=== PATIENT | male | born 1970 | race Caucasian/White ===

== ENCOUNTER → 2018-05-20 12:35 | Outpatient (REF) | payer BC, SELFPAY | LOC: NCHCN 12:35 | PROVIDERS: PCP Physician Assistant Medical; Visit Provider Family Medicine | DX: H57.8 Other specified disorders of eye and adnexa (principal); Z20.9 Contact with and (suspected) exposure to unspecified communicable disease | CPT/HCPCS: 87070 ==

== ENCOUNTER → 2018-06-01 10:40 | Outpatient (REF) | payer BC, SELFPAY ==
[2018-06-01 21:51] LABS: ALT 88 U/L (12-78); AST 36 U/L (15-37); Alkaline Phosphatase 112 U/L (46-116); Anion Gap 7.3 mmol/L (3-11); BUN 15 mg/dL (7-18); Bilirubin, Total 0.4 mg/dL (0.2-1.0); CO2 27.7 mmol/L (21.0-32.0); CREATININE 1.03 mg/dL (0.70-1.30); Calcium 8.7 mg/dL (8.5-10.1); Chloride 104 mmol/L (98-107); Cholesterol 248 mg/dL (50-200); Glucose 117 mg/dL (70-100); HDL Cholesterol 42 mg/dL (40-60); LDL CHOLESTEROL 78 mg/dL (<100); Potassium 4.3 mmol/L (3.5-5.1); Sodium 139 mmol/L (136-145); Triglyceride 704 mg/dL (30-150)
== END ==
LOC: NCHCN 10:40
PROVIDERS: PCP Physician Assistant Medical; Visit Provider Physician Assistant Medical
DX: Z00.00 Encounter for general adult medical examination without abnormal findings (principal); E78.5 Hyperlipidemia, unspecified; I10 Essential (primary) hypertension
CPT/HCPCS: 80053; 80061; 83721; 83036

== ENCOUNTER 2018-11-19 10:07 | Outpatient (REF) | payer BC, SELFPAY ==
[2018-11-19 19:39] LABS: ALT 114 U/L (12-78); AST 51 U/L (15-37); Albumin 4.3 g/dL (3.4-5.0); Alkaline Phosphatase 64 U/L (46-116); Anion Gap 10.3 mmol/L (3-11); BUN 21 mg/dL (7-18); Bilirubin, Total 0.5 mg/dL (0.2-1.0); CO2 27.7 mmol/L (21.0-32.0); CREATININE 1.02 mg/dL (0.70-1.30); Calcium 9.6 mg/dL (8.5-10.1); Chloride 100 mmol/L (98-107); Cholesterol 300 mg/dL (50-200); Glucose 116 mg/dL (70-100); HDL Cholesterol 49 mg/dL (40-60); LDL CHOLESTEROL 152 mg/dL (<100); Potassium 4.4 mmol/L (3.5-5.1); Sodium 138 mmol/L (136-145); Total Protein 7.3 g/dL (6.4-8.2); Triglyceride 523 mg/dL (30-150)
[2018-11-19 19:47] LABS: Hemoglobin A1C 6.1 % (4.5-6.2)
== END 2018-11-19 10:27 ==
LOC: NCHCN 10:07
PROVIDERS: PCP Physician Assistant Medical; Visit Provider Physician Assistant Medical
DX: R73.01 Impaired fasting glucose (principal); E78.5 Hyperlipidemia, unspecified
CPT/HCPCS: 80053; 80061; 83721; 83036

== ENCOUNTER 2019-02-22 09:25 | Outpatient (REF) | payer BC, SELFPAY ==
[2019-02-22 20:52] LABS: ALT 50 U/L (12-78); AST 21 U/L (15-37); Alkaline Phosphatase 60 U/L (46-116); Anion Gap 10.9 mmol/L (3-11); BUN 22 mg/dL (7-18); Bilirubin, Total 0.5 mg/dL (0.2-1.0); CO2 28.1 mmol/L (21.0-32.0); CREATININE 0.98 mg/dL (0.70-1.30); Calcium 9.2 mg/dL (8.5-10.1); Chloride 102 mmol/L (98-107); Cholesterol 254 mg/dL (50-200); Glucose 117 mg/dL (70-100); HDL Cholesterol 45 mg/dL (40-60); LDL CHOLESTEROL 127 mg/dL (<100); Sodium 141 mmol/L (136-145); Total Protein 6.7 g/dL (6.4-8.2); Triglyceride 433 mg/dL (30-150)
[2019-02-22 23:22] LABS: Hemoglobin A1C 6.3 % (4.5-6.2)
== END 2019-02-22 09:45 ==
LOC: NCHCN 09:25
PROVIDERS: PCP Physician Assistant Medical; Visit Provider Physician Assistant Medical
DX: E78.5 Hyperlipidemia, unspecified (principal)
CPT/HCPCS: 80053; 80061; 83721; 83036

== ENCOUNTER 2020-10-03 16:09 | Outpatient (REF) | payer BC, SELFPAY ==
[2020-10-03 20:53] LABS: ALT 63 U/L (16-63); AST 31 U/L (15-37); Albumin 4.3 g/dL (3.4-5.0); Alkaline Phosphatase 68 U/L (46-116); Anion Gap 12.6 mmol/L (3-11); BUN 18 mg/dL (7-18); Bilirubin, Total 0.6 mg/dL (0.2-1.0); CO2 25.4 mmol/L (21.0-32.0); CREATININE 1.04 mg/dL (0.70-1.30); Calcium 9.2 mg/dL (8.5-10.1); Chloride 99 mmol/L (98-107); Cholesterol 301 mg/dL (<200); Glucose 110 mg/dL (74-106); HDL Cholesterol 47 mg/dL (40-60); Potassium 3.6 mmol/L (3.5-5.1); Sodium 137 mmol/L (136-145); TSH (W/Ref FT4) 2.55 uIU/mL (0.36-3.74); Triglyceride 847 mg/dL (<150)
[2020-10-03 20:54] LABS: Hemoglobin A1C 6.3 % (<5.7)
[2020-10-03 21:05] LABS: LDL CHOLESTEROL 113 mg/dL (<100)
== END 2020-10-03 16:29 ==
LOC: NCHCN 16:09
PROVIDERS: PCP Physician Assistant Medical; Visit Provider Physician Assistant Medical
DX: Z00.00 Encounter for general adult medical examination without abnormal findings (principal); Z13.220 Encounter for screening for lipoid disorders; Z13.1 Encounter for screening for diabetes mellitus; Z13.29 Encounter for screening for other suspected endocrine disorder
CPT/HCPCS: 80053; 80061; 83721; 83036; 84443

== ENCOUNTER 2020-12-17 01:02 | Outpatient (CLI) | payer BC, SELFPAY ==
--- NOTE | 2020-12-17 11:35 | DI.MRI_ITS ---
EXAM: MR LUMBAR SPINE WO CLINICAL HISTORY: ACUTE LOW BACK PAIN, M54.5. TECHNIQUE: Multiplanar multisequence MRI of the Lumbar spine was performed. COMPARISON: There are no plain films available at the time of this MRI interpretation. FINDINGS: Five lumbar vertebrae are presumed. Conus medullaris is at normal level. There is no evidence of conus mass nor subjacent clumping of in trathecal nerve roots to suggest arachnoiditis. The distal thecal sac appears unremarkable.There is no evidence of Tarlov intrasacral cysts nor other significant findings within the sacral canal Bones:There are no acute fractures nor ominous osseous lesions in the lumbar vertebral bodies and vis ualized sacrum. Slight loss of height of L1 vertebral body is noted at superior endplate. This is n ot associated with bone edema. With respect to the individual levels... T12-L1: Unremarkable L1-2: Normal disc height and signal. No disc herniation nor central canal stenosis.No foraminal steno sis L2-3: Normal disc height. No disc herniation nor central canal stenosis.No foraminal stenosis.No face t arthropathy. L3-4: Normal disc height. No disc herniation or central canal stenosis.No foraminal stenosis.No face t arthropathy. L4-5: Normal disc height and signal. There is a tiny focus of increased signal seen in the posterior inferior aspect of the annulus, this at the level of the exiting left neural foramen. However, ther e is no significant disc herniation at this level. No central nor foraminal stenosis. No facet arth ropathy. L5-S1: Normal disc height and signal. Also tiny focus of signal abnormality in the posterior annulus but without a distinct disc herniation. No central canal stenosis. No foraminal stenosis. No face t arthropathy. Soft tissues: paraspinal soft tissues appear unremarkable. IMPRESSION: 1. Minimal findings as described above. No evidence of significant disc herniation, central canal st enosis, neural foraminal stenosis, nor facet arthropathy. 2. Slight loss of height at superior endplate of L1 noted which does not appear acute (no associated bone edema). 3. No significant osseous lesions identified in the lumbar vertebrae. DATA REPOSITORY:
== END 2020-12-17 01:22 ==
PROVIDERS: PCP Physician Assistant Medical; Visit Provider Physician Assistant Medical
DX: M54.5 Low back pain (principal)
CPT/HCPCS: 72148

== ENCOUNTER 2020-12-18 20:12 | Outpatient (REF) | payer BC, SELFPAY ==
[2020-12-20 14:24] LABS: COVID-19 RT-PCR UVMMC Result Positive (Negative)
== END 2020-12-18 20:13 | disposition home or self-care (01) ==
LOC: NCHCN 20:12
PROVIDERS: PCP Physician Assistant Medical; Visit Provider Physician Assistant Medical
DX: Z20.822 Contact with and (suspected) exposure to COVID-19 (principal); J06.9 Acute upper respiratory infection, unspecified
CPT/HCPCS: U0003

== ENCOUNTER 2020-12-21 05:24 | Outpatient (CLI) | payer BC, SELFPAY ==
[2020-12-21 12:35] VITALS: BP 131/88; PULSE 82; RESP 20; TEMP 36.6; O2SAT 97
[2020-12-21] MEDS: Normal Saline Flush 10 ML SYR IVP (12:44)
[2020-12-21 13:10] VITALS: BP 134/92; PULSE 78; RESP 16; TEMP 37; O2SAT 95
[2020-12-21] MEDS: Normal Saline 500 ML 30 ML IV (13:42)
[2020-12-21 13:51] VITALS: BP 128/88; PULSE 76; RESP 18; TEMP 36.9; O2SAT 96
[2020-12-21 14:15] VITALS: BP 139/92; PULSE 74; RESP 18; TEMP 36.9; O2SAT 97
== END 2020-12-21 05:25 | disposition home or self-care (01) ==
LOC: INF 05:24
PROVIDERS: PCP Physician Assistant Medical; Visit Provider Family Medicine
DX: U07.1 COVID-19 (principal)
CPT/HCPCS: 96365

== ENCOUNTER 2021-01-14 11:41 | Outpatient (REF) | payer BC, SELFPAY ==
[2021-01-14 16:42] LABS: ALT 75 U/L (16-63); AST 29 U/L (15-37); Albumin 4.3 g/dL (3.4-5.0); Alkaline Phosphatase 77 U/L (46-116); Anion Gap 13.6 mmol/L (3-11); BUN 21 mg/dL (7-18); Bilirubin, Total 0.4 mg/dL (0.2-1.0); CO2 27.4 mmol/L (21.0-32.0); Calcium 9.5 mg/dL (8.5-10.1); Chloride 102 mmol/L (98-107); Cholesterol 255 mg/dL (<200); Glucose 128 mg/dL (74-106); HDL Cholesterol 46 mg/dL (40-60); Potassium 4.3 mmol/L (3.5-5.1); Sodium 143 mmol/L (136-145); Total Protein 7.2 g/dL (6.4-8.2); Triglyceride 509 mg/dL (<150)
[2021-01-14 16:43] LABS: Hemoglobin A1C 6.4 % (<5.7)
[2021-01-14 16:57] LABS: LDL CHOLESTEROL 134 mg/dL (<100)
== END 2021-01-14 11:42 | disposition home or self-care (01) ==
LOC: NCHCN 11:41
PROVIDERS: PCP Physician Assistant Medical; Visit Provider Physician Assistant Medical
DX: R73.03 Prediabetes (principal); E78.5 Hyperlipidemia, unspecified
CPT/HCPCS: 80053; 80061; 83721; 83036

== ENCOUNTER 2021-05-13 21:03 | Outpatient (REF) | payer BC, SELFPAY ==
[2021-05-13 22:36] LABS: Hemoglobin A1C 6.8 % (<5.7)
[2021-05-13 22:37] LABS: ALT 101 U/L (16-63); AST 33 U/L (15-37); Albumin 4.1 g/dL (3.4-5.0); Alkaline Phosphatase 79 U/L (46-116); Anion Gap 9.2 mmol/L (3-11); BUN 17 mg/dL (7-18); Bilirubin, Total 0.4 mg/dL (0.2-1.0); CO2 26.8 mmol/L (21.0-32.0); Calcium 9.3 mg/dL (8.5-10.1); Chloride 103 mmol/L (98-107); Cholesterol 323 mg/dL (<200); Glucose 140 mg/dL (74-106); HDL Cholesterol 43 mg/dL (40-60); Potassium 4.3 mmol/L (3.5-5.1); Sodium 139 mmol/L (136-145); Total Protein 6.9 g/dL (6.4-8.2); Triglyceride 929 mg/dL (<150)
[2021-05-13 22:49] LABS: LDL CHOLESTEROL 136 mg/dL (<100)
== END 2021-05-13 21:04 | disposition home or self-care (01) ==
LOC: NCHCN 21:03
PROVIDERS: PCP Physician Assistant Medical; Visit Provider Physician Assistant Medical
DX: R73.03 Prediabetes (principal); I10 Essential (primary) hypertension
CPT/HCPCS: 80053; 80061; 83721; 83036

== ENCOUNTER 2021-08-13 09:48 | Outpatient (REF) | payer BC, SELFPAY ==
[2021-08-13 14:14] LABS: Cholesterol 283 mg/dL (<200); HDL Cholesterol 45 mg/dL (40-60); Triglyceride 974 mg/dL (<150)
[2021-08-13 14:25] LABS: LDL CHOLESTEROL 97 mg/dL (<100)
[2021-08-13 14:26] LABS: Hemoglobin A1C 6.2 % (<5.7)
[2021-08-13 23:07] LABS: PSA, Screening 0.6 ng/mL (0.0-3.5)
== END 2021-08-13 09:49 | disposition home or self-care (01) ==
LOC: NCHCN 09:48
PROVIDERS: PCP Physician Assistant Medical; Visit Provider Physician Assistant Medical
DX: E78.5 Hyperlipidemia, unspecified (principal); E11.9 Type 2 diabetes mellitus without complications; R35.1 Nocturia; Z12.5 Encounter for screening for malignant neoplasm of prostate
CPT/HCPCS: 80061; 83721; 84153; 83036

== ENCOUNTER 2022-01-07 14:51 | Outpatient (REF) | payer BC, SELFPAY ==
[2022-01-07 17:34] LABS: ALT 89 U/L (16-63); AST 28 U/L (15-37); Albumin 4.3 g/dL (3.4-5.0); Alkaline Phosphatase 78 U/L (46-116); Anion Gap 13.4 mmol/L (3-11); BUN 25 mg/dL (7-18); Bilirubin, Total 0.5 mg/dL (0.2-1.0); CO2 25.6 mmol/L (21.0-32.0); CREATININE 0.9 mg/dL (0.70-1.30); Calcium 9.5 mg/dL (8.5-10.1); Chloride 99 mmol/L (98-107); Glucose 135 mg/dL (74-106); Potassium 4.3 mmol/L (3.5-5.1); Sodium 138 mmol/L (136-145); Total Protein 7.2 g/dL (6.4-8.2)
[2022-01-07 17:56] LABS: Abs Immature Grans 0.02 10^3/uL (0.0-0.06); Absolute Basophil Count 0.03 10^3/uL (0.0-0.2); Absolute Eosinophil Count 0.09 10^3/uL (0.0-0.7); Absolute Monocyte Count 0.45 10^3/uL (0.1-0.8); Absolute Neutrophil Count 4.15 10^3/uL (1.2-6.7); Basophils % 0.5; Eosinophils % 1.5; HCT 47.3 % (40.0-50.0); Immature Grans % 0.3; Lymphocytes % 20.2; MCH 30.9 pg (27.0-33.0); MCHC 33.8 % (32.0-36.0); MCV 91.3 fL (80-95); MPV 10.9 fL (8.0-11.0); Monocytes % 7.6; Neutrophils % 69.9; Nucleated RBC 0 %; Platelet Count 200 10^3/uL (130-400); RBC 5.18 10^6/uL (4.36-5.78); RDW 12.3 % (11.8-14.1); RDW-SD 41.4 fL; WBC 5.94 10^3/uL (4.4-10.8)
== END 2022-01-07 14:52 | disposition home or self-care (01) ==
LOC: NCHCN 14:51
PROVIDERS: PCP Physician Assistant Medical; Visit Provider Physician Assistant Medical
DX: R79.89 Other specified abnormal findings of blood chemistry (principal)
CPT/HCPCS: 80053; 85025

== ENCOUNTER 2022-01-07 15:11 | Outpatient (REF) | payer BC, SELFPAY | END 2022-01-07 15:12 | disposition home or self-care (01) | LOC: NCHCN 15:11 | PROVIDERS: PCP Physician Assistant Medical; Visit Provider Physician Assistant Medical ==

== ENCOUNTER 2022-06-23 15:41 | Outpatient (REF) | payer BC, SELFPAY ==
[2022-06-23 20:13] LABS: HCT 45.9 % (40.0-50.0); HGB 16.3 g/dL (13.5-17.5); MCH 31.3 pg (27.0-33.0); MCHC 35.5 % (32.0-36.0); MCV 88 fL (80-95); MPV 10.7 fL (8.0-11.0); Platelet Count 268 10^3/uL (130-400); RDW 11.3 % (11.8-14.1); WBC 6.89 10^3/uL (4.4-10.8)
[2022-06-23 20:37] LABS: ALT 57 U/L (16-63); AST 24 U/L (15-37); Albumin 4.4 g/dL (3.4-5.0); Alkaline Phosphatase 47 U/L (46-116); Anion Gap 12.5 mmol/L (3-11); BUN 17 mg/dL (7-18); Bilirubin, Total 0.4 mg/dL (0.2-1.0); CO2 26.5 mmol/L (21.0-32.0); Calcium 9.7 mg/dL (8.5-10.1); Calculated LDL 93 mg/dL (<100); Chloride 100 mmol/L (98-107); Cholesterol 185 mg/dL (<200); Estimated GFR 89.44 (mL/min/1.73m2); Glucose 117 mg/dL (74-106); HDL Cholesterol 49 mg/dL (40-60); Potassium 3.8 mmol/L (3.5-5.1); Sodium 139 mmol/L (136-145); Total Protein 7.5 g/dL (6.4-8.2); Triglyceride 215 mg/dL (<150)
== END 2022-06-23 15:42 | disposition home or self-care (01) ==
LOC: NCHCN 15:41
PROVIDERS: PCP Physician Assistant Medical; Visit Provider Physician Assistant Medical
DX: E78.5 Hyperlipidemia, unspecified (principal); E11.9 Type 2 diabetes mellitus without complications; R79.89 Other specified abnormal findings of blood chemistry
CPT/HCPCS: 80053; 80061; 85027

== ENCOUNTER 2023-06-26 21:02 | Outpatient (REF) | payer BC, SELFPAY ==
[2023-06-26 15:53] LABS: HCT 48.8 % (40.0-50.0); HGB 16.7 g/dL (13.5-17.5); MCH 30.8 pg (27.0-33.0); MCHC 34.2 % (32.0-36.0); MCV 90 fL (80-95); MPV 10.4 fL (8.0-11.0); Platelet Count 241 10^3/uL (130-400); RBC 5.42 10^6/uL (4.36-5.78); RDW 11.9 % (11.8-14.1); RDW-SD 38.8 fL; WBC 7.75 10^3/uL (4.4-10.8)
[2023-06-26 16:38] LABS: ALT 54 U/L (16-63); AST 24 U/L (15-37); Albumin 4.7 g/dL (3.4-5.0); Alkaline Phosphatase 47 U/L (46-116); Anion Gap 11.3 mmol/L (3-11); BUN 22 mg/dL (7-18); Bilirubin, Total 0.4 mg/dL (0.2-1.0); CO2 25.7 mmol/L (21.0-32.0); Calcium 9.9 mg/dL (8.5-10.1); Calculated LDL 95 mg/dL (<100); Chloride 100 mmol/L (98-107); Cholesterol 193 mg/dL (<200); Estimated GFR 88.88 (mL/min/1.73m2); Glucose 113 mg/dL (74-106); HDL Cholesterol 51 mg/dL (40-60); Potassium 4.2 mmol/L (3.5-5.1); Sodium 137 mmol/L (136-145); Total Protein 7.8 g/dL (6.4-8.2); Triglyceride 238 mg/dL (<150)
== END 2023-06-26 21:03 | disposition home or self-care (01) ==
LOC: NCHCN 21:02
PROVIDERS: PCP Physician Assistant Medical; Visit Provider Physician Assistant Medical
DX: E11.9 Type 2 diabetes mellitus without complications (principal); I10 Essential (primary) hypertension; E78.5 Hyperlipidemia, unspecified
CPT/HCPCS: 80053; 80061; 85027; 83036

== ENCOUNTER 2023-11-11 18:31 | Outpatient (REF) | payer BC, SELFPAY ==
[2023-11-11 20:33] LABS: Hemoglobin A1C 6.3 % (<5.7)
[2023-11-11 22:12] LABS: Magnesium 2.4 mg/dL (1.8-2.4)
== END 2023-11-11 18:32 | disposition home or self-care (01) ==
LOC: NCHCN 18:31
PROVIDERS: PCP Physician Assistant Medical; Visit Provider Physician Assistant Medical
DX: R51.9 Headache, unspecified (principal); E11.9 Type 2 diabetes mellitus without complications
CPT/HCPCS: 83036; 83735

== ENCOUNTER 2024-05-17 22:01 | Outpatient (REF) | payer BC, SELFPAY ==
[2024-05-17 19:37] LABS: ALT 39 U/L (16-63); AST 18 U/L (15-37); Albumin 4.2 g/dL (3.4-5.0); Alkaline Phosphatase 43 U/L (46-116); Anion Gap 10.3 mmol/L (3-11); BUN 14 mg/dL (7-18); Bilirubin, Total 0.31 mg/dL (0.2-1.0); CO2 27.7 mmol/L (21.0-32.0); Calcium 9.6 mg/dL (8.5-10.1); Calculated LDL 94 mg/dL (<100); Chloride 104 mmol/L (98-107); Cholesterol 229 mg/dL (<200); Estimated GFR 88.33 (mL/min/1.73m2); Glucose 122 mg/dL (74-106); HDL Cholesterol 57 mg/dL (40-60); Potassium 4.3 mmol/L (3.5-5.1); Sodium 142 mmol/L (136-145); Total Protein 6.9 g/dL (6.4-8.2); Triglyceride 393 mg/dL (<150)
[2024-05-17 19:59] LABS: Hemoglobin A1C 5.9 % (<5.7)
--- OUTSIDE RECORDS SUMMARY | 2024-05-17 22:23 | XMS_ITS | Encounter Summary ---
Author Organization [facility] Address [address] [place] [address] Care Team Providers Care Technical Trainer Name Role Phone Unknown, Provider Primary Care Provider [phone] Encounter Details Date Type Department Care Team (Late st Contact Info) Description 12/19/[address] [facility] Pathology & Laboratory Medicine - [address] [address] Outr Resulting Lab, Provider Social History Tobacco Use Types Packs/Day Years Used Date Smoking Tobacco: Never Assessed Sex and Gender Information Value Date Recorded Sex Assigned at Not on file Gender Identity Not on file Sexual Orientation Not on file documented as of this encounter Plan of Treatment Not on file documented as of this encounter Procedures Procedure Name Priority Date/Time Associated Diagnosis Comments ZZCOVID-19 TEST [facility] PCR Today 12/18/2020 11:00 EDT COVID-19 TESTING Routine 12/18/2020 11:0 0 EDT documented in this encounter Results * COVID-19 TEST [facility] PCR (12/18/2020 11:00 EDT) Swab ENTIRE NASOPHARYNX / Unknown 12/18/2020 11:00 EDT 12/19/2020 15:47 EDT Provider Outr Resulting Lab MICROBIOLOGY - GENERAL ORDERABLES [facility] [address] [place] [address] * (ABNORMAL) COVID-19 TESTING (12/18/2020 11:00 EDT) COVID-19 rt-PCR Result Positive( AA) Negative 12/20/2020 13:10 EDT [facility] Comment: This test has not been FDA cleared or approved. This test has been authorized by FDA under an EUA for use by authorized laboratories. This test has been authorized only for detection of nucleic acid from 2019-nCoV, not for any other viruses or pathogens. This test is only authorized for the duration of the declaration that circumstances exist justifying the authorization of emergency use of in vitro diagnostic tests for detection and/or diagnosis of 2019-nCoV under section 564(b)(1) of Act, 21 U.S.C ?? 360bbb-3(b) (1), unless the authorization is terminated or revoked sooner. This test was developed and its performance characteristics determined by [facility]. It has not been cleared or approved by the US Food and Drug Administration. FDA does not require this test to go through premarket FDA review. This test is used for clinical purposes. It should not be regarded as investigational or for research. This laboratory is certified under the Clinical Laboratory Improvement Amendments (CLIA) as qualified to perform high complexity clinical laboratory testing. This test is based on the [facility] COVID-19 Emergency Use Authorization (EUA) assay, with minor modification as defined by the FDA Performed on the Espinelao 7 Flex RT-PCR System. Performing Lab [facility] 12/20/2020 13:10 EDT [facility] Swab 12/18/2020 11:0 0 EDT 12/19/2020 15:47 EDT Provider Outr Resulting Lab MICROBIOLOGY - GENERAL ORDERABLES [facility] [address] [place] [address] documented in this encounter Visit Diagnoses Not on filedocumented in this encounter Additional Health Concerns Infection Onset Date Last Indicated Resolved Time COVID-19 12/18/2020 12/18/2020 01/17/2021 22:1 5 EDT documented as of this encounter Care Teams Technical Trainer Relationship Specialty Start Date End Date Unknown, Provider, PCP - General 08/27/09 documented as of this encounter
--- OUTSIDE RECORDS SUMMARY | 2024-05-17 22:23 | XMS_ITS | Encounter Summary ---
Author Organization [facility] Address [address] [place] [address] Care Team Providers Care Mail List Librarian Name Role Phone Unknown, Provider Primary Care Provider [phone] Encounter Details Date Type Department Care Team (Late st Contact Info) Description 08/22/2021 Lab Requisition [facility] Pathology & Laboratory Medicine - [address] [address] Darren Tierney MD [address] [place] [phone] Personal history of colonic polyps; Abnormal levels of other serum enzymes; Gastro-esophageal reflux disease without esophagitis Social History Tobacco Use Types Packs/Day Years Used Date Smoking Tobacco: Never Assessed Sex and Gender Information Value Date Recorded Sex Assigned at Not on file Gender Identity Not on file Sexual Orientation Not on file documented as of this encounter Plan of Treatment Not on file documented as of this encounter Procedures Procedure Name Priority Date/Time Associated Diagnosis Comments SURGICAL PATHOLOGY Today 08/21/2021 8: 27 EST Personal history of colonic polyps Abnormal levels of other serum enzymes Gastro-esophageal reflux disease without esophagitis documented in this encounter Results * SURGICAL PATHOLOGY (08/21/2021 8:27 EST) Note to Patient The following pathology results have been interpreted by your pathologist and may be available to you before your health provider has had the opportunity to review them. Please allow time for your provider to receive these results and explore management options, if applicable. 08/27/2021 9:36 [facility] Final Diagnosis A. STOMACH, ANTRUM, POLYP, BIOPSY: - Consistent with hyperplastic polyp. B. STOMACH, ANTRUM, BIOPSY: - Antral mucosa with reactive (chemical) gastropathy. - Negative for Helicobacter pylori on H&E stained sections. C. STOMACH, FUNDUS, POLYP, BIOPSY: - Consistent with hyperplastic polyp associated with moderate parietal cell hyperplasia. D. STOMACH, BIOPSY: - Fundic mucosa with moderate parietal cell hyperplasia. - Negative for Helicobacter pylori on H&E stained sections. E. GASTROESOPHAGEAL JUNCTION, BIOPSY: - Mild chronic inflammation of squamocolumnar mucosa with reactive changes and features consistent with reflux. - Negative for definite intestinal metaplasia. - Negative for dysplasia. F. COLON, PROXIMAL DESCENDING, POLYP, BIOPSY: - Colonic mucosa with no significant diagnostic abnormalities. - No definite polyp identified. G. COLON, DISTAL TRANSVERSE, POLYP, BIOPSY: - Tubular adenoma. H. COLON, MID DESCENDING, POLYPS, BIOPSIES: - Tubular adenomas. I. COLON, DISTAL DESCENDING, POLYP, BIOPSY: - Tubular adenoma. J. COLON, SIGMOID, POLYPS, BIOPSIES: - Hyperplastic polyps. 08/27/2021 9:36 [facility] Attestation There was significant resident/fellow involvement in the diagnostic evaluation of this case. By the signature below, the attending physician certifies that they have personally conducted a gross and/or microscopic examination of the described specimens and rendered or confirmed the above diagnosis. 08/27/2021 9:36 [facility] at 0936 Clinical History History of colon polyps, GERD, abnormal liver enzymes; clinical diagnosis code: Z86.010, R74.8, K21.9 08/27/2021 9:36 [facility] Gross Description A. Received in formalin labelled with proper patient identification (initials L, J) and antral polyp cold Bx forceps are two charles tissues, 0.2 x 0.1 x 0.1 cm and 0.6 x 0.1 x 0.1 cm. Entirely submitted in A1. B. Received in formalin labelled with proper patient identification (initials L, J) and antrum Bx are two charles tissues, 0.2 x 0.1 x 0.1 cm and 0.5 x 0.1 x 0.1 cm. Entirely submitted in B1. C. Received in formalin labelled with proper patient identification (initials L, J) and polyp fundus cold Bx forceps is a charles-brown tissue, 0.6 x 0.1 x 0.1 cm. Entirely submitted in C1. D. Received in formalin labelled with proper patient identification (initials L, J) and gastric body Bx are three charles tissues ranging from 0.1 cm in greatest dimension to 0.2 x 0.1 x 0.1 cm. Entirely submitted in D1. E. Received in formalin labelled with proper patient identification (initials L, J) and GE junction Bx is a charles tissue, 0.3 x 0.2 x 0.1 cm. Entirely submitted in E1. F. Received in formalin labelled with proper patient identification (initials L, J) and proximal descending colon polyp cold Bx forceps is a pale charles tissue, 0.1 x 0.1 by less than 0.1 cm. Entirely submitted in F1. G. Received in formalin labelled with proper patient identification (initials L, J) and distal transverse colon polyp cold snare is a charles-brown polyp, 0.6 x 0.4 x 0.2 cm. Entirely submitted in G1. H. Received in formalin labelled with proper patient identification (initials L, J) and mid descending colon polyp x2 cold Bx forceps are 5 charles tissues ranging from 0.1 cm in greatest dimension to 0.2 x 0.2 x 0.1 cm. Entirely submitted in H1. I. Received in formalin labelled with proper patient identification (initials L, J) and distal descending colon polyp cold Bx forceps is a charles tissue, 0.3 x 0.2 x 0.1 cm. Entirely submitted in I1. J. Received in formalin labelled with proper patient identification (initials L, J) and sigmoid colon polyp x2 cold Bx forceps are two charles-brown tissues averaging 0.2 x 0.1 x 0.1 cm. Entirely submitted in J1. SHANELLE DRAPER(ASCP) 08/23/2021 9:39 08/27/2021 9:36 [facility] Resident/Hany w: Licha Szymanski MD 08/27/2021 9:36 [facility] Performing Lab [facility] 9:36 [facility] Scanned Images 08/27/2021 9:36 EST [facility] Tissue ENTIRE SIGMOID COLON / Unknown 08/21/2021 8:27 EST 08/22/2021 22:42 EST Tissue specimen (specimen) STOMACH STRUCTURE / Unknown 08/21/2021 8:27 EST 08/22/2021 22:42 EST Tissue specimen (specimen) GASTRIC FUNDUS STRUCTURE / Unknown 08/21/2021 8:27 EST 08/22/2021 22:42 EST Tissue specimen (specimen) STOMACH STRUCTURE / Unknown 08/21/2021 8:27 EST 08/22/2021 22:42 EST Tissue specimen (specimen) ESOPHAGEAL STRUCTURE / Unknown 08/21/2021 8:27 EST 08/22/2021 22:42 EST Tissue specimen (specimen) DESCENDING COLON STRUCTURE / Unknown 08/21/2021 8:27 EST 08/22/2021 22:42 EST Tissue specimen (specimen) TRANSVERSE COLON STRUCTURE / Unknown 08/21/2021 8:27 EST 08/22/2021 22:42 EST Tissue specimen (specimen) DESCENDING COLON STRUCTURE / Unknown 08/21/2021 8:27 EST 08/22/2021 22:42 EST Tissue specimen (specimen) DESCENDING COLON STRUCTURE / Unknown 08/21/2021 8:27 EST 08/22/2021 22:42 EST Tissue specimen (specimen) SIGMOID COLON STRUCTURE / Unknown 08/21/2021 8:27 EST 08/22/2021 22:42 EST Darren Tierney MD PATHOLOGY ORD ERABLES [facility] [address] [place] [address] documented in this encounter Visit Diagnoses Diagnosis Personal history of colonic polyps Abnormal levels of other serum enzymes Gastro-esophageal reflux disease without esophagitis Esophageal reflux documented in this encounter Care Teams Mail List Librarian Relationship Specialty Start Date End Date Unknown, Provider, PCP - General 08/27/09 documented as of this encounter
--- OUTSIDE RECORDS SUMMARY | 2024-05-17 22:23 | XMS_ITS | Encounter Summary ---
Author Organization [facility] Address [address] [place] [address] Care Team Providers Care Melt Down Furnace Operator Name Role Phone Unknown, Provider Primary Care Provider [phone] Encounter Details Date Type Department Care Team (Late st Contact Info) Description 08/13/2021 Lab Requisition [facility] Pathology & Laboratory Medicine - [address] [address] Outr Resulting Lab, Provider Social History Tobacco [...] Procedure Name Priority Date/Time Associated Diagnosis Comments PSA TOTAL, DIAGNOSTIC Routine 08/13/2021 7:45 EST documented in this encounter Results * PSA TOTAL, DIAGNOSTIC (08/13/2021 7:45 EST) PSA 0.6 0.0 - 3.5 ng/mL 08/13/2021 23:01 EST [facility] Blood VENOUS BLOOD / Unknown 08/13/2021 7:45 EST 08/13/2021 21:30 EST Narrative [facility] - 08/13/2021 23:01 EST NOTE: Serum PSA concentration should not be interpreted as absolute evidence for the presence or absence of malignant disease. Assayed on Siemens ADVIA Quartixaur XPT using chemiluminescent technology.??Values obtained by using different assay methods cannot be used interchangeably. Provider Outr Resulting Lab CHEMISTRY & BLOOD GAS ORDERABLES [facility] [address] [place] [address] documented in this encounter Visit Diagnoses Not on filedocumented in this encounter Care Teams Melt Down Furnace Operator Relationship Specialty Start Date End Date Unknown, Provider, PCP - General 08/27/09 documented as of this encounter
--- OUTSIDE RECORDS SUMMARY | 2024-05-17 22:23 | XMS_ITS | Clinical Summary ---
Author Organization [facility] Address [address] [place] [address] Care Team Providers Care Social Science Research Assistant Name Role Phone Unknown, Provider Primary Care Provider [phone] Social History Tobacco Use Types Packs/Day Years Used Date Smoking Tobacco: Never Assessed Sex and Gender Information Value Date Recorded Sex Assigned at Not on file Gender Identity Not on file Sexual Orientation Not on file Plan of Treatment Health Maintenance Due Date Last Done Comments Hepatitis C Screen 1970 Hepatitis B Vaccine (1 of 3 - 19+ 3-dose series) 04/20 COVID-19 Vaccine ( season) 2023 Care Teams Social Science Research Assistant Relationship Specialty Start Date End Date Unknown, Provider, PCP - General 08/27/09
--- OUTSIDE RECORDS SUMMARY | 2024-05-17 22:23 | XMS_ITS | Encounter Summary ---
Author Organization [facility] Address [address] [place] [address] Care Team Providers Care Marriage Performer Name Role Phone Unknown, Provider Primary Care Provider Encounter Details Date Type Department Care Team (Latest Contact Info) Description 07/16/2015 11:38 EDT - 07/16/2015 23:59 EDT Hospital Encounter [address] [address] Unknown, Provider, Discharge Disposition: Home or Self Care Social History Tobacco Use Types Packs/Day Years Used Date Smoking Tobacco: Never Assessed Sex and Gender Information Value Date Recorded Sex Assigned at Not on file Gender Identity Not on file Sexual Orientation Not on file documented as of this encounter Discharge Disposition Disposition Code Departure Means Destination Home or Self Residential documented in this encounter Plan of Treatment Not on file documented as of this encounter Visit Diagnoses Not on filedocumented in this encounter Care Teams Marriage Performer Relationship Specialty Start Date End Date Unknown, Provider, PCP - General 08/27/09 documented as of this encounter
--- OUTSIDE RECORDS SUMMARY | 2024-05-17 22:23 | XMS_ITS | Referral Summary ---
Author Organization [facility] Address [address] [place] [address] Care Team Providers Care Dispatcher Street Department Name Role Phone Unknown, Provider Primary Care Provider [phone] Social History Tobacco Use Types Packs/Day Years Used Date Smoking Tobacco: Never Assessed Sex and Gender Information Value Date Recorded Sex Assigned at Not on file Gender Identity Not on file Sexual Orientation Not on file Plan of Treatment Not on file Care Teams Dispatcher Street Department Relationship Specialty Start Date End Date Unknown, Provider, PCP - General 08/27/09
--- OUTSIDE RECORDS SUMMARY | 2024-05-17 22:23 | XMS_ITS | Encounter Summary ---
Author Organization [facility] Address [address] [place] [address] Care Team Providers Care Adobe Layer Name Role Phone Unavailable Primary Care Provider Unavailabl e Encounter Details Date Type Department Care Team (Late st Contact Info) Description 07/03/2008 Before PRISM Converted Visit (Maple) [facility] - Maple conversion [address] [place] [address] Temo Plata MD [facility] [address] [place], [place] [id number] Social History Tobacco Use Types Packs/Day Years Used Date Smoking Tobacco: Never Assessed Sex and Gender Information Value Date Recorded Sex Assigned at Not on file Gender Identity Not on file Sexual Orientation Not on file documented as of this encounter Plan of Treatment Not on file documented as of this encounter Procedures Procedure Name Priority Date/Time Associated Diagnosis Comments SURGICAL PATHOLOGY Routine 07/03/2008 0:00 EDT documented in this encounter Results * SURGICAL PATHOLOGY (07/03/2008 0:00 EDT) Pathology Report: SURGICAL PATHOLOGY REPORT ? Reports generated via electronic interface contain original data; ? however they are lacking the format of the original report. ? Caution should be taken when reading/interpreti ng unformatted reports. ? Name: ? FAUSTO, AN JR ? Accession #: ? [id number] ? : ? 1970 (Age: 38) ??M ? Collect Date: ? 07/03/2008 ? Location: ? [facility] ? Receive Date: ? 07/04/2008 ? Provider: TEMO READY MD ? Copy to: ? Final Pathologic Diagnosis: ? Skin of forearm, left, punch biopsy: ? - Dermatofibroma. ? Microscopic Description: ? There is irregular epidermal hyperplasia with basal hyperpigmentation. ? Within the dermis, there is a spindle cell proliferation accompanied by ? histiocytes. ??The spindle cells have plump nuclei that vary to a mild degree in size and shape. ??The proliferation is associated with thick bundles of collagen (collagen trapping) and areas of sclerosis. ??(Dr. Glaser)/[facility] ? Document reviewed and electronically signed by: ? Abi Glaser MD ? Report ??Date: 07/05/2008 18:00 ? By the signature above, the attending physician certifies that he/she has ? personally conducted a gross and/or microscopic examination of the described ? specimens and rendered or confirmed the above diagnosis. ? Specimen(s) Received: ? L forearm ? Clinical History: ? 5 mm brown raised growing lesion ? dermatofibroma ? Gross Description: ? Received in formalin labelled [place] and L forearm is a 0.5 cm in ?? diameter punch biopsy of a charles-light brown centrally hypopigmented macule ? excised to a depth of 0.2 cm. ??The bisected specimen is submitted entirely in ?? one cassette. ??(J. Tessitore)/mms ? End of Report ? [facility] 07/03/2008 07/04/2008 15: 30 EDT Temo Plata MD PATHOLOGY ORDERABLES [facility] [address] [place] [address] documented in this encounter Visit Diagnoses Not on filedocumented in this encounter
--- OUTSIDE RECORDS SUMMARY | 2024-05-17 22:23 | XMS_ITS | Encounter Summary ---
Author Organization [facility] Address [address] [place] [address] Care Team Providers Care Molecular Biology Scientist Name Role Phone Unknown, Provider Primary Care Provider [phone] Encounter Details Date Type Department Care Team (Late st Contact Info) Description 07/16/2015 Results Only [facility]- [facility] [phone] Noble Nelson, [address] [place] [address] Social History Tobacco Use Types Packs/Day Years Used Date Smoking Tobacco: Never Assessed Sex and Gender Information Value Date Recorded Sex Assigned at Not on file Gender Identity Not on file Sexual Orientation Not on file documented as of this encounter Plan of Treatment Not on file documented as of this encounter Procedures Procedure Name Priority Date/Time Associated Diagnosis Comments SURGICAL PATHOLOGY Routine 07/16/2015 8:28 EDT documented in this encounter Results * SURGICAL PATHOLOGY (07/16/2015 8:28 EDT) Pathology Report: SURGICAL PATHOLOGY REPORT Reports generated via electronic interface contain original data; however they are lacking the format of the original report. Caution should be taken when reading/interpret ing unformatted reports. Name: ? AN HUERTA JR ? Accession #: ? [id number] ? : ? 1970 (Age: 45) ??M ? Collect Date: ? 07/16/2015 ? Location: ? [facility] ? Receive Date: ? 07/17/2015 ? Provider: NOBLE NELSON DO Copy to: ? Final Pathologic Diagnosis: SKIN OF NECK, LEFT, EXCISION: - Follicular cyst, infundibular type. ?? Microscopic Description: There is a dermal cyst that is lined by stratified squamous epithelium that matures through a granular layer. ??The cyst is filled with laminated orthokeratin. ??(Dr. Glaser)/[facility] Document reviewed and electronically signed by: JORGE GLASER MD Report ??Date: 07/17/2015 16:06 By the signature above, the attending physician certifies that he/she has personally conducted a gross and/or microscopic examination of the described specimens and rendered or confirmed the above diagnosis. Specimen(s) Received: Left neck mass Clinical History: ? sebaceous cyst Gross Description: ? Received in formalin labelled with proper patient identification (initials L, J) and left neck mass is an unoriented elliptical excision of charles-pink wrinkled skin (2.5 x 0.7 cm and is excised to a depth of 0.6 cm). Within the subcutaneous tissue is a charles-white firm nodule (0.7 x 0.6 x 0.5 cm). The surgical margin is inked blue. The cut surfaces of the nodule reveal white grumous material. Senior Underwriter sections of the nodule are submitted in 1. 07/17/2015 9:10 AM End of Report [facility] 07/16/2015 8:28 EDT 07/17/2015 8:28 EDT Noble Nelson DO PATHOLOGY ORDER [facility]EL [facility] [address] [place] [address] documented in this encounter Visit Diagnoses Not on filedocumented in this encounter Care Teams Molecular Biology Scientist Relationship Specialty Start Date End Date Unknown, Provider, PCP - General 08/27/09 documented as of this encounter
--- OUTSIDE RECORDS SUMMARY | 2024-05-17 22:23 | XMS_ITS | Encounter Summary ---
Author Organization [facility] Address [address] [place] [address] Care Team Providers Care Research Psychologist Name Role Phone Unknown, Provider Primary Care Provider [phone] Encounter Details Date Type Department Care Team (Late st Contact Info) Description 02/17/2023 Lab Requisition [facility] Lab - Main [address] [address] Darren Tierney MD [address] [place] [phone] Benign neoplasm of colon, unspecified; Gastro-esophageal reflux disease without esophagitis Social History [...] Date/Time Associated Diagnosis Comments SURGICAL PATHOLOGY Today 02/16/2023 7: 33 EDT Benign neoplasm of colon, unspecified Gastro-esophageal reflux disease without esophagitis documented in this encounter Results * SURGICAL PATHOLOGY (02/16/2023 7:33 EDT) Note to Patient The following pathology results have been interpreted by your pathologist and may be available to you before your health provider has had the opportunity to review them. Please allow time for your provider to receive these results and explore management options, if applicable. 02/18/2023 11:35 EDT [facility] Final Diagnosis A. STOMACH, BIOPSY: - Polypoid gastric mucosa with reactive gastropathy. - Negative for intestinal metaplasia and dysplasia. B. GASTROESOPHAGEAL JUNCTION, BIOPSY: - Squamous mucosa with chronic inactive esophagitis and reactive changes. - No glandular tissue present. C. PROXIMAL ASCENDING COLON, BIOPSY: - Tubular adenoma. D. PROXIMAL DESCENDING COLON, BIOPSY: - Sessile serrated lesion without dysplasia. E. SIGMOID COLON, BIOPSY: - Hyperplastic polyp. 02/18/2023 11:35 [facility] Attestation By the signature below, the attending physician certifies that they have 1) personally conducted a gross and/or microscopic examination of the described specimen(s), and/or personally interpreted the results of laboratory testing of the described specimen(s), and 2) personally rendered or confirmed the above diagnosis. 02/18/2023 11:35 [facility] at 1135 Clinical History GERD, multiple adenomatous colon polyps, neg genetic testing 02/18/2023 11:35 [facility] Gross Description A. Received in formalin labeled ? Kurt W. Deanna Jr.? and ? gastric polyp? are 2 mucosal tissue fragments each measuring 0.3 x 0.2 x 0.2 cm. Entirely submitted in A1. B. Received in formalin labeled ? Kurt W. Langtange Jr.? and ? GE junction? are 2 filamentous tissue cores measuring less than 0.1 cm and 0.2 x 0.1 x 0.1 cm. Entirely submitted in B1. C. Received in formalin labeled ? Kurt W. Langtange Jr.? and ? proximal ascending colon polyp? are 4 mucosal tissue fragments ranging in size from 0.2 x 0.1 x 0.1 cm up to 0.4 x 0.3 x 0.3 cm in greatest dimension. Entirely submitted in C1. D. Received in formalin labeled ? Kurt W. Langtange Jr.? and ? proximal descending colon polyp? is a single mucosal tissue fragment measuring 0.5 x 0.2 x 0.1 cm. Entirely submitted in D1. E. Received in formalin labeled ? Kurt W. Langtange Jr.? and ? sigmoid colon polyp? is a single mucosal tissue fragment measuring 0.3 x 0.2 x 0.1 cm. Entirely submitted in E1. EDUARDO ABDIM 02/17/2023 10:03 02/18/2023 11:35 EDT [facility] Performing Lab [facility] 11:35 EDT [facility] Scanned Images 02/18/2023 11:35 EDT [facility] Tissue SPECIMEN FROM STOMAC H OBTAINED BY TOTAL GASTRECTOMY / Unknown 02/16/2023 7:33 EDT 02/17/2023 8:31 EDT Tissue specimen (specimen) CARDIOESOPHAGEAL JUNCTION STRUCTURE / Unknown 02/16/2023 7:33 EDT 02/17/2023 8:31 EDT Tissue specimen (specimen) POLYP OF COLON / Unknown 02/16/2023 7:33 EDT 02/17/2023 8:31 EDT Tissue specimen (specimen) POLYP OF COLON / Unknown 02/16/2023 7:33 EDT 02/17/2023 8:31 EDT Tissue specimen (specimen) POLYP OF COLON / Unknown 02/16/2023 7:33 EDT 02/17/2023 8:31 EDT Darren Tierney MD PATHOLOGY ORD ERABLES [facility] [address] [place] [address] documented in this encounter Visit Diagnoses Diagnosis Benign neoplasm of colon, unspecified Gastro-esophageal reflux disease without esophagitis Esophageal reflux documented in this encounter Care Teams Research Psychologist Relationship Specialty Start Date End Date Unknown, Provider, PCP - General 08/27/09 documented as of this encounter
[2024-05-18 18:28] LABS: PSA, Screening 1.5 ng/mL (<=3.5)
== END 2024-05-17 22:02 | disposition home or self-care (01) ==
LOC: NCHCN 22:01
PROVIDERS: PCP Physician Assistant Medical; Visit Provider Physician Assistant Medical
DX: E78.5 Hyperlipidemia, unspecified (principal); E11.9 Type 2 diabetes mellitus without complications; Z12.5 Encounter for screening for malignant neoplasm of prostate
CPT/HCPCS: 80053; 80061; 84153; 83036

== ENCOUNTER 2024-08-29 14:16 | Outpatient (CLI) | payer BC, SELFPAY ==
--- NOTE | 2024-08-29 | DI.RAD_ITS ---
Exam(s) XR SACRUM COCCYX EXAM: XR SACRUM COCCYX CLINICAL HISTORY: PAIN IN COCCYX, M53.3,FELL ON TAILBONE 10 DAYS AGO, ONGOING PAIN, ? FX. TECHNIQUE: 2D digital imaging was performed. COMPARISON: No exams were available for comparison FINDINGS: 3 views On the lateral view there is some irregularity of the coccyx noted which may be a fracture. This is less evident on the frontal views. Remainder of the sacrum appears intact/unremarkable by this level . Sacroiliac joints unremarkable. No osseous lesions. No disc space narrowing at L4-5 and L5-S1 le vels IMPRESSION: Probable coccyx fracture, seen on the lateral view. DATA REPOSITORY: RADIATION DOSE DELIVERED:
--- NOTE | 2024-08-29 | DI.RAD_ITS ---
Exam(s) XR LUMBAR SPINE COMPLETE EXAM: XR LUMBAR SPINE COMPLETE CLINICAL HISTORY: LOW BACK PAIN, M54.50. TECHNIQUE: 2D digital imaging was performed. COMPARISON: No exams were available for comparison FINDINGS: Five views There is mild anterior wedging of L1, less than 10 percent height loss. All disc spaces exhibit norm al height. No listhesis. No pars defects. Facet joints appear unremarkable at all levels as do the sacroiliac joints. There is no significant scoliosis. No osseous lesions evident. IMPRESSION: Slight height loss L1, approximately 10 percent, age indeterminate. DATA REPOSITORY: RADIATION DOSE DELIVERED:
--- OUTSIDE RECORDS SUMMARY | 2024-08-29 14:24 | XMS_ITS | Encounter Summary ---
Author Organization [facility] Address [address] [place] [address] Care Team Providers Care Assembler Motor Vehicle Name Role Phone Unknown, Provider Primary Care Provider Unava ilable Encounter Details Date Type Department Care Team (Late st Contact Info) Description 07/16/2015 Results Only [facility] [phone] Noble Nelson, [address] [place] [address] Social History Tobacco Use Types Packs/Day Years Used Date Smoking Tobacco: Never Assessed Sex and Gender Information Value Date Recorded Sex Assigned at Not on file Legal Sex Male 18:43 EST Gender Identity Not on file Sexual Orientation [...] AN HUERTA JR ? Accession #: ? [id number] ? : ? 1970 (Age: 45) ??M [...] cyst is filled with laminated orthokeratin. ??(Dr. Glaser)/n Document reviewed and electronically signed by: JORGE [...] of the nodule reveal white grumous material. Wet Mix Operator sections of the nodule are submitted in 1. 07/17/2015 9:10 AM End of Report [facility] 07/16/2015 8:28 EDT 07/17/2015 8:28 EDT us Noble Nelson DO PATHOLOGY ORDERABLES Fi nal Result [facility] [address] [place] [address] documented in this encounter Visit Diagnoses Not on filedocumented in this encounter Care Teams Assembler Motor Vehicle Relationship Specialty Start Date End Date Unknown, Provider, PCP - General 08/27/09 documented as of this encounter
--- OUTSIDE RECORDS SUMMARY | 2024-08-29 14:24 | XMS_ITS | Encounter Summary ---
Author Organization [facility] Address [address] [place] [address] Care Team Providers Care Business Development Professional Name Role Phone Unknown, Provider Primary Care Provider Unava ilable Encounter Details Date Type Department Care Team (Late st Contact Info) Description 02/17/2023 Lab Requisition [facility] Lab - Main [place] [address] [place] [phone] Darren Tierney MD [address] [place] [phone] Benign neoplasm of colon, unspecified; Gastro-esophageal [...] management options, if applicable. 02/18/2023 11:35 EDT [facility] Final Diagnosis A. STOMACH, BIOPSY: [...] COLON, BIOPSY: - Hyperplastic polyp. 02/18/2023 11:35 [facility] Attestation By the signature below, the attending physician certifies that they have 1) personally conducted a gross and/or microscopic examination of the described specimen(s), and/or personally interpreted the results of laboratory testing of the described specimen(s), and 2) personally rendered or confirmed the above diagnosis. 02/18/2023 11:35 [facility] at 1135 Clinical History GERD, multiple adenomatous colon polyps, neg genetic testing 02/18/2023 11:35 [facility] Gross Description A. Received in formalin labeled ? Kurt W. Langtange Jr.? and ? gastric polyp? are 2 [...] 0.1 cm. Entirely submitted in E1. EDUARDO SHEEBA 02/17/2023 10:03 02/18/2023 11:35 EDT [facility] Performing Lab [facility] 11:35 EDT [facility] Scanned Images 02/18/2023 11:35 EDT [facility] Tissue SPECIMEN FROM STOMAC H [...] Unknown 02/16/2023 7:33 EDT 02/17/2023 8:31 EDT us Darren Tierney MD PATHOLOGY ORDERABLES Final Result [facility] [address] [place] [address] documented in this encounter Visit Diagnoses Diagnosis Benign neoplasm of colon, unspecified Gastro-esophageal reflux disease without esophagitis Esophageal reflux documented in this encounter Care Teams Business Development Professional Relationship Specialty Start Date End Date Unknown, Provider, PCP - General 08/27/09 documented as of this encounter
--- OUTSIDE RECORDS SUMMARY | 2024-08-29 14:24 | XMS_ITS | Encounter Summary ---
Author Organization [facility] Address [address] [place] [address] Care Team Providers Care Advanced Practice Registered Nurse Name Role Phone Unknown, Provider Primary Care Provider Unava ilable Encounter Details Date Type Department Care Team (Late st Contact Info) Description 08/22/2021 Lab Requisition [facility] Pathology & Laboratory Medicine - [address] [address] Darren Tierney MD [address] [place] [phone] Personal history of colonic polyps; Abnormal [...] explore management options, if applicable. 08/27/2021 9:36 [facility] Final Diagnosis A. [...] POLYPS, BIOPSIES: - Hyperplastic polyps. 08/27/2021 9:36 [facility] Attestation There was significant resident/fellow involvement in the diagnostic evaluation of this case. By the signature below, the attending physician certifies that they have personally conducted a gross and/or microscopic examination of the described specimens and rendered or confirmed the above diagnosis. 08/27/2021 9:36 [facility] at 0936 Clinical History History of colon polyps, GERD, abnormal liver enzymes; clinical diagnosis code: Z86.010, R74.8, K21.9 08/27/2021 9:36 [facility] Gross Description A. [...] J1. SHANELLE DRAPER(ASCP) 08/23/2021 9:39 08/27/2021 9:36 [facility] Resident/Hany w: Licha Szymanski MD 08/27/2021 9:36 [facility] Performing Lab [facility] 9:36 [facility] Scanned Images 08/27/2021 9:36 EST [facility] Tissue ENTIRE SIGMOID COLON / [...] Unknown 08/21/2021 8:27 EST 08/22/2021 22:42 EST us Darren Tierney MD PATHOLOGY ORDERABLES Final Result Performing Organization Address City/State/[facility] Co de Phone Number [facility] [address] [place] [address] documented in this encounter Visit Diagnoses Diagnosis Personal history of colonic polyps Abnormal levels of other serum enzymes Gastro-esophageal reflux disease without esophagitis Esophageal reflux documented in this encounter Care Teams Advanced Practice Registered Nurse Relationship Specialty Start Date End Date Unknown, Provider, PCP - General 08/27/09 documented as of this encounter
--- OUTSIDE RECORDS SUMMARY | 2024-08-29 14:24 | XMS_ITS | Encounter Summary ---
Author Organization [facility] Address [address] [place] [address] Care Team Providers Care Vending Machine Collector Name Role Phone Unavailable Primary Care Provider Unavailabl e Encounter Details Date Type Department Care Team (Late st Contact Info) Description 07/03/2008 Before PRISM Converted Visit (Maple) [facility] - Maple conversion [address] [place] [address] Temo Plata MD [facility] [address] [place], [place] [id number] Social History Tobacco Use Types Packs/Day Years [...] FAUSTO, AN JR ? Accession #: ? [id number] ? : ? 1970 (Age: 38) ??M [...] (collagen trapping) and areas of sclerosis. ??(Dr. Glaser)/[facility] ? Document reviewed and electronically signed by: [...] [facility] 07/03/2008 07/04/2008 15: 30 EDT us Temo Plata MD PATHOLOGY ORDERABLES Final Resul t [facility] [address] [place] [address] documented in this encounter Visit Diagnoses Not on filedocumented in this encounter
--- OUTSIDE RECORDS SUMMARY | 2024-08-29 14:24 | XMS_ITS | Encounter Summary ---
Author Organization [facility] Address [address] [place] [address] Care Team Providers Care Business Objects Analyst Name Role Phone Unknown, Provider Primary Care Provider Unava ilable Encounter Details Date Type Department Care Team (Late st Contact Info) Description 05/18/2024 Lab Requisition [facility] Pathology & Laboratory Medicine - [facility] [address] [place] [address] Outr Resulting Lab, Provider Social History Tobacco [...] Associated Diagnosis Comments PSA TOTAL, DIAGNOSTIC Routine 05/17/2024 13:45 EDT documented in this encounter Results * PSA TOTAL, DIAGNOSTIC (05/17/2024 13:45 EDT) PSA 1.5 <=3.5 ng/mL 05/18/2024 18:23 EDT [facility] Blood VENOUS BLOOD / Unknown 05/17/2024 13:45 EDT 05/18/2024 17:28 EDT Narrative [facility] - 05/18/2024 18:23 EDT NOTE: Serum PSA concentration should not be interpreted as absolute evidence for the presence or absence of malignant disease. Assayed on Siemens ADVIA introNetworksaur XPT using chemiluminescent technology.??Values obtained by using different assay methods cannot be used interchangeably. us Provider Outr Resulting Lab CHEMISTRY & BLOOD GA S ORDERABLES Final Result [facility] [address] [place] [address] documented in this encounter Visit Diagnoses Not on filedocumented in this encounter Care Teams Business Objects Analyst Relationship Specialty Start Date End Date Unknown, Provider, PCP - General 08/27/09 documented as of this encounter
--- OUTSIDE RECORDS SUMMARY | 2024-08-29 14:24 | XMS_ITS | Encounter Summary ---
Author Organization [facility] Address [address] [place] [address] Care Team Providers Care Candle Making Supervisor Name Role Phone Unknown, Provider Primary Care Provider Unava ilable Encounter Details Date Type Department Care Team (Late st Contact Info) Description 12/19/2020 Lab Requisition [facility] Pathology & Laboratory Medicine - [address] [address] Outr Resulting Lab, Provider Social History Tobacco [...] Unknown 12/18/2020 11:00 EDT 12/19/2020 15:47 EDT us Provider Outr Resulting Lab MICROBIOLOGY - GENER AL ORDERABLES Final Result [facility] [address] [place] [address] * (ABNORMAL) COVID-19 TESTING (12/18/2020 11:00 EDT) COVID-19 rt-PCR Result Positive( AA) Negative 12/20/2020 13:10 EDT [facility] Comment: This test has [...] developed and its performance characteristics determined by [facility]. It has not been cleared [...] testing. This test is based on the [facility] COVID-19 Emergency Use Authorization (EUA) assay, with minor modification as defined by the FDA Performed on the Appsdaily Solutionso 7 Flex RT-PCR System. Performing Lab [facility] 12/20/2020 13:10 EDT [facility] Swab 12/18/2020 11:0 0 EDT 12/19/2020 15:47 EDT us Provider Outr Resulting Lab MICROBIOLOGY - GENER AL ORDERABLES Final Result [facility] [address] [place] [address] documented in this encounter Visit Diagnoses Not on filedocumented in this encounter Additional Health Concerns Infection Onset Date Last Indicated Resolved Time COVID-19 12/18/2020 12/18/2020 01/17/2021 22:1 5 EDT documented as of this encounter Care Teams Candle Making Supervisor Relationship Specialty Start Date End Date Unknown, Provider, PCP - General 08/27/09 documented as of this encounter
--- OUTSIDE RECORDS SUMMARY | 2024-08-29 14:24 | XMS_ITS | Encounter Summary ---
Author Organization [facility] Address [address] [place] [address] Care Team Providers Care Jig Bore Tool Maker Name Role Phone Unknown, Provider Primary Care Provider Unava ilable Encounter Details Date Type Department Care Team (Late st Contact Info) Description 08/13/2021 Lab Requisition [facility] Pathology & Laboratory Medicine - [address] [address] Outr Resulting Lab, Provider Social History Tobacco [...] 0.0 - 3.5 ng/mL 08/13/2021 23:01 EST [facility] Blood VENOUS BLOOD / Unknown 08/13/2021 7:45 EST 08/13/2021 21:30 EST Narrative [facility] - 08/13/2021 23:01 EST NOTE: Serum PSA concentration should not be interpreted as absolute evidence for the presence or absence of malignant disease. Assayed on Siemens ADVIA StartupMojoaur XPT using chemiluminescent technology.??Values obtained by using different assay methods cannot be used interchangeably. us Provider Outr Resulting Lab CHEMISTRY & BLOOD GA S ORDERABLES Final Result [facility] [address] [place] [address] documented in this encounter Visit Diagnoses Not on filedocumented in this encounter Care Teams Jig Bore Tool Maker Relationship Specialty Start Date End Date Unknown, Provider, PCP - General 08/27/09 documented as of this encounter
--- OUTSIDE RECORDS SUMMARY | 2024-08-29 14:24 | XMS_ITS | Referral Summary ---
Author Organization [facility] Address [address] [place] [address] Care Team Providers Care Review Specialist Name Role Phone Unknown, Provider MD Primary Care Provider Unava ilable Social History Tobacco Use Types Packs/Day Years Used Date Smoking Tobacco: Never Assessed Sex and Gender Information Value Date Recorded Sex Assigned at Not on file Legal Sex Male 18:43 EST Gender Identity Not on file Sexual Orientation Not on file Plan of Treatment Not on file Insurance [facility] Care Teams Review Specialist Relationship Specialty Start Date End Date Unknown, Provider, PCP - General 08/27/09
--- OUTSIDE RECORDS SUMMARY | 2024-08-29 14:24 | XMS_ITS | Clinical Summary ---
Author Organization [facility] Address [address] [place] [address] Care Team Providers Care Data Sme Name Role Phone Unknown, Provider MD Primary [...] 3-dose series) 04/20 COVID-19 Vaccine ( season) 2024 Insurance [facility] Member Subscriber Plan / Payer (Ef fective 2018-Present) Name:Kurt Huerta Jr. Relation to Subscriber:Spouse Name:Laly Whatley Date of :1970 (Home) (Work) Address: [address] [place] [address] Payer ID:[id number] (NAIC) Type:[facility] Address: [place] [phone] Care Teams Data Sme Relationship Specialty Start Date End Date Unknown, Provider, PCP - General 08/27/09
--- OUTSIDE RECORDS SUMMARY | 2024-08-29 14:24 | XMS_ITS | Encounter Summary ---
Author Organization [facility] Address [address] [place] [address] Care Team Providers Care Furniture Finisher Apprentice Name Role Phone Unknown, Provider Primary Care Provider Unava ilable Encounter Details Date Type Department Care Team (Latest Contact Info) Description 07/16/2015 11:38 EDT - 07/16/2015 23:59 EDT Hospital Encounter [address] [address] Unknown, ProviderMD Discharge Disposition: Home or Self Care Social History Tobacco Use Types Packs/Day Years Used Date Smoking Tobacco: Never Assessed Sex and Gender Information Value Date Recorded Sex Assigned at Not on file Legal Sex Male 18:43 EST Gender Identity Not on file Sexual Orientation Not on file documented as of this encounter Discharge Disposition Disposition Code Departure Means Destination Home or Self [facility] documented in this encounter Plan of Treatment Not on file documented as of this encounter Visit Diagnoses Not on filedocumented in this encounter Care Teams Furniture Finisher Apprentice Relationship Specialty Start Date End Date Unknown, Provider, PCP - General 08/27/09 documented as of this encounter
== END 2024-08-29 14:36 ==
LOC: DI 14:22
PROVIDERS: PCP Physician Assistant Medical; Visit Provider Family Medicine
DX: M54.50 Low back pain, unspecified (principal); W19.XXXA Unspecified fall, initial encounter; S32.2XXA Fracture of coccyx, initial encounter for closed fracture
CPT/HCPCS: 72110; 72220

== ENCOUNTER 2025-06-06 15:41 | Outpatient (REF) | payer SELFPAY ==
[2025-06-06 16:40] LABS: Abs Immature Grans 0.01 10^3/uL (0.0-0.06); HCT 45.8 % (40.0-50.0); HGB 15.9 g/dL (13.5-17.5); Immature Grans % 0.2 %; MCH 31.9 pg (27.0-33.0); MCHC 34.7 % (32.0-36.0); MCV 92 fL (80-95); MPV 10.6 fL (8.0-11.0); Platelet Count 183 10^3/uL (130-400); RBC 4.98 10^6/uL (4.36-5.78); RDW 11.7 % (11.8-14.1); RDW-SD 39.3 fL; WBC 6.16 10^3/uL (4.4-10.8)
[2025-06-06 17:00] LABS: ALT 46 U/L (16-63); AST 22 U/L (15-37); Albumin 4.3 g/dL (3.4-5.0); Alkaline Phosphatase 55 U/L (46-116); Anion Gap 11.2 mmol/L (3-11); BUN 20 mg/dL (7-18); Bilirubin, Total 0.5 mg/dL (0.2-1.0); CO2 28.8 mmol/L (21.0-32.0); Calcium 9.8 mg/dL (8.5-10.1); Chloride 100 mmol/L (98-107); Cholesterol 252 mg/dL (<200); Estimated GFR 87.78 (mL/min/1.73m2); Glucose 163 mg/dL (74-106); HDL Cholesterol 54 mg/dL (>or=40); Potassium 4.1 mmol/L (3.5-5.1); Sodium 140 mmol/L (136-145); Total Protein 7.0 g/dL (6.4-8.2); Triglyceride 708 mg/dL (<150)
[2025-06-06 17:11] LABS: Hemoglobin A1C 6.4 % (<5.7)
[2025-06-06 17:29] LABS: LDL CHOLESTEROL 108 mg/dL (<100)
== END 2025-06-06 15:42 | disposition home or self-care (01) ==
LOC: NCHCN 15:41
PROVIDERS: PCP Physician Assistant Medical; Visit Provider Physician Assistant Medical
DX: I10 Essential (primary) hypertension (principal); E78.5 Hyperlipidemia, unspecified; E11.9 Type 2 diabetes mellitus without complications; R74.01 Elevation of levels of liver transaminase levels
CPT/HCPCS: 80053; 80061; 83721; 83036; 85025

== ENCOUNTER 2025-10-04 08:34 | Outpatient (CLI) | payer OTHER, SELFPAY ==
[2025-10-04 09:13] LABS: Hemoglobin A1C 6.8 % (<5.7)
[2025-10-04 10:08] LABS: ALT 53 U/L (10-49); AST 30 U/L (<34); Albumin 4.7 g/dL (3.2-5.0); Alkaline Phosphatase 51 U/L (46-116); Anion Gap 8.4 mmol/L (3-11); BUN 23 mg/dL (9-23); Bilirubin, Total 0.4 mg/dL (0.2-1.2); CO2 29.6 mmol/L (20.0-31.0); Calcium 9.8 mg/dL (8.3-10.6); Chloride 103 mmol/L (98-107); Cholesterol 264 mg/dL (<200); Glucose 132 mg/dL (74-106); HDL Cholesterol 52 mg/dL (>or=40); Potassium 3.9 mmol/L (3.5-5.1); Sodium 141 mmol/L (136-145); Total Protein 6.9 g/dL (5.7-8.2)
== END 2025-10-04 08:35 | disposition home or self-care (01) ==
LOC: LBO 08:35
PROVIDERS: PCP Physician Assistant Medical; Visit Provider Physician Assistant Medical
DX: E78.5 Hyperlipidemia, unspecified (principal)
CPT/HCPCS: 36415; 80053; 80061; 83721; 83036